=== PATIENT | male | born 1985 | race Caucasian/White ===

== ENCOUNTER 2025-10-07 19:28 | Emergency (ER) | payer BC, SELFPAY ==
[2025-10-07 19:32] VITALS: BMI 31.6
--- NOTE | 2025-10-07 19:34 | XR_ITS ---
Examination: Duplex scan of the lower extremity, unilateral left Date and time of exam: 2024, 2121 hours INDICATIONS: Injury to leg 3 days ago with pain and swelling Technique: Duplex scan of the extremity veins using B-mode/grayscale imaging and Doppler spectral analysis and color flow Attention is directed to internal echogenicity, compression and augmentation involving these veins, color flow assessment, spectral analysis Findings: Major deep venous structures in the extremity demonstrate normal course and caliber. There is no evidence of deep vein thrombosis. Normal color flow and spectral analysis Impression: Negative for DVT..
[2025-10-07 20:53] VITALS: BP 145/88; PULSE 98; RESP 20; TEMP 37.4; O2SAT 98
--- NOTE | 2025-10-07 21:09 | XR_ITS ---
Examination: Tibia-Fibula, left, 2 views Technique: Tibia-fibula AP lateral 2 views Date and time of exam: October 07, 2025, 2151 hours INDICATIONS: Injury to the lower leg today, lower leg pain. FINDINGS: No fracture or dislocation No foreign body IMPRESSION: No fracture or dislocation
--- NOTE | 2025-10-07 21:41 | EDNOTE_ITS ---
ED Extremity Problem RME/HPI General Chief complaint: Extremity Injury, Lower Stated complaint: LEFT LOWER LEG PAIN Time Seen by Provider: 10/07/25 21:05 Arrival date/time: 10/07/25 19:28 40M with no significant PMH presents to ED with several days of LLE pain/swelling/redness after patient was doing deadlifts in the gym. Patient felt something tear in his leg. But then a red painful rash started to appear that radiates up to inner thigh. patient has also had a mild cough and tested negative for strep and clinic yesterday, where PCP sent him here for US to r/o DVT. Patient denies drug use. Limitations: no limitations Related Data Previous Rx's ?Medication ?Instructions ?Recorded Hydrocodone/Acetaminophen * (NORCO 1 tab PO Q4H PRN PA IN #20 tabs 10/27/15 5/325 *) cephalexin 750 mg capsule 750 mg PO TID 7 days #21 cap s 10/07/25 Allergies Allergy/AdvReac Type Severity Reaction Status Date / Time No Known Allergies Allergy Verified 10/07/25 19:29 Review of Systems Review of Systems Systems Reviewed: All systems reviewed, normal except as documented Integumentary/Breasts Skin/Breast: Reports as per HPI, Reports rash, Reports skin pain and Reports skin swelling Past Medical History Social History SMOKING STATUS: Never smoker ED Exam General Limitations: Present no limitations General appearance: Present alert and in no apparent distress Head Head exam: Present atraumatic Neck Neck exam: Present normal inspection, full ROM and trachea midline Chest Chest inspection: Present normal inspection and symmetric chest wall rise Extremities Exam Extremities exam: Present full ROM Expanded Lower Extremity Exam Upper leg exam: Present full ROM (L) and erythema Lower leg exam: Present full ROM (L), tenderness, swelling and erythema Neurological Exam Neurological exam: Present alert and oriented X3 Psychiatric Psychiatric exam: Present normal affect and normal mood Skin Skin exam: Present warm, dry, intact and normal color Course Quality Measures none Orders Category Date Time Status US venous doppler LE LT Stat Exams 10/07/25 19:34 Completed XR tibia fibula LT 2V Stat Exams 10/07/25 21:09 Completed A1C [Glycohemoglobin w (eAG)] Stat Lab 10/07/25 21:38 Completed CBC Stat Lab 10/07/25 21:38 Completed CMP [Comprehensive Metabolic Panel] Stat Lab 10/07/25 21:38 Completed CRP [C-Reactive Protein] Stat Lab 10/07/25 21:38 Completed Creatine Kinase Stat Lab 10/07/25 21:38 Completed ESR [Sed Rate (ESR)] Stat Lab 10/07/25 21:38 Completed INR [Prothrombin Time with INR] Stat Lab 10/07/25 21:38 Completed Lactate (Lactic Acid) Stat Lab 10/07/25 21:38 Completed PTT [Partial Thromboplastin Time] Stat Lab 10/07/25 21:38 Completed Procalcitonin Stat Lab 10/07/25 21:38 Completed cephALEXin [Keflex] Med 10/07/25 23:00 Discontinued 1,000 mg PO X1 ONE Vital Signs Vital signs: Vital Signs Temperature 99.4 F 10/07/25 20:53 Pulse Rate 98 10/07/25 20:53 Respiratory Rate 20 10/07/25 20:53 Blood Pressure 145/88 H 10/07/25 20:53 Pulse Oximetry (%) 98 10/07/25 20:53 Oxygen Delivery Method Room Air 10/07/25 20:53 O2 at 98% on RA and WNLs Extremity Problem MDM Narrative MDM Narrative:: 40M with no significant PMH presents to ED with several days of LLE pain/swelling/redness after patient was doing deadlifts in the gym. Patient felt something tear in his leg. But then a red painful rash started to appear that radiates up to inner thigh. patient has also had a mild cough and tested negative for strep and clinic yesterday, where PCP sent him here for US to r/o DVT. Patient denies drug use. Physical exam reveals redness, swelling, and tenderness of LLE. Rash appears petechiael. Gait and ROM of L ankle normal. There is also some redness in L inner thigh. Normal WOB. Patient is afebrile, calm, and alert. US no DVT. XR unremarkable. No leukocytosis. CMP unremarkable. Procal mildly elevated. Lactate normal. A1C normal. CK normal. ESR/CRP moderately elevated, which could be due to trauma from lifting vs cellulitis. Given extend of rash, will treat. Patient has PCP appt in 2 days and will return if any worsening. Patient data External records reviewed:: None Clinical information provided by:: patient Social determinants that could affect healthcare access:: none Patient has the following chronic illnesses:: none How is presenting disease/condition affected by chronic disease/condition?: no chronic disease Evaluation data The following diagnostics were reviewed and interpreted by me:: lab results and radiology exam(s) Lab and/or radiology exams considered but not ordered:: ordered Interpretation Summary: above Medications / Prescriptions Medications or Prescriptions considered but not ordered:: ordered Medication administrations:: Medication Administration History Discontinued Medications Cephalexin HCl (Cephalexin 250 Mg Capsule) 1,000 mg PO X1 ONE Stop: 10/07/25 23:01 Last Admin: 10/07/25 23:12 Dose: 1,000 mg Documented By: EE above Consultations Consultation(s) initiated? (list below): No Diagnosis Extremity Problem Differential Diagnosis: herpes zoster, gout, cellulitis, superficial thrombophlebitis, deep venous thrombosis of upper extremity, lower extremity edema, deep vein thrombosis of lower extremity and other (nec fasc, rhabdo) Most likely diagnosis given after review of the tests above:: cellulitis Admission Indicated Admission indicated?: not indicated Admission Request Was there a request for admission?: No Disposition Plan Disposition Plan: Discharge Discharge Attestation Discharge Attestation: The patient and all family members were given an opportunity to ask questions and understood the discharge instructions. Discharge instructions specifically effects, indications for sooner follow up or return to the emergency department, and the expected course of current diagnosis. Patient condition: Stable Discharge Plan Plan Patient Disposition: HOME (Self Care) Discharge Disposition comment: Stable Prescriptions/Referrals Prescriptions/Med Rec: New cephalexin 750 mg capsule 750 mg PO TID 7 Days Qty: 21 0RF No Action Hydrocodone/Acetaminophen * (NORCO 5/325 *) 1 TAB tablet 1 tab PO Q4H PRN (Reason: PAIN) Qty: 20 0RF Referrals: No Primary/Family,Physician [Primary Care Provider] - In 1 week Problem List Clinical Impression: Cellulitis Patient/Caregiver Discharge Instructions Education Materials: ED Cellulitis Additional Instructions: Please follow-up with PCP within 24-48 hours and return immediately if symptoms worsen. Print Language: Portuguese Stand Alone Forms: Patient Portal Info Letter PA/COMBER TENDER Supervising Physician DEBBI/MICHAELA Supervising Physician: Dr. Augustin
[2025-10-07 21:50] LABS: Lactate (Lactic Acid) 1.1 mMol/L (0.4-2.0)
[2025-10-07 22:04] LABS: Basophils # (Auto) 0.1 Thou/mm3 (0.0-0.2); Basophils % (Auto) 1 % (0-2.5); Eosinophils # (Auto) 0.0 Thou/mm3 (0.0-0.5); Eosinophils % (Auto) 0 % (0-10); Hematocrit 51.3 % (41.0-53.0); Hemoglobin 17.5 g/dL (13.5-16.0); Immature Granulocytes Auto 0.06 Thou/mm3 (0.00-0.00); Lymphocytes # (Auto) 1.2 Thou/mm3 (1.0-4.8); Lymphocytes % (Auto) 11 % (10-50); Mean Corpuscular HGB Conc 34.1 g/dl (31.0-37.0); Mean Corpuscular Hemoglobin 29.1 pg (25.0-35.0); Mean Corpuscular Volume 85 fL (80-100); Monocytes # (Auto) 0.9 Thou/mm3 (0.0-0.8); Monocytes % (Auto) 9 % (0-12); Neutrophils # (Auto) 8.1 Thou/mm3 (1.8-7.7); Neutrophils % (Auto) 79 % (37-80); Nucleated Red Blood Cell # 0.00 Thou/mm3 (0.00-0.00); Nucleated Red Blood Cell % 0 /100 WBC (0); Platelet Count 136 Thou/mm3 (140-440); RDW Standard Deviation 41.9 fL (35.1-43.9); Red Blood Count 6.01 Miln/mm3 (4.50-5.90); White Blood Count 10.3 Thou/mm3 (3.8-10.6)
[2025-10-07 22:09] LABS: INR 1.1 (0.9-1.3); Partial Thromboplastin Time 22.9 Seconds (22.0-36.0); Prothrombin Time 11.9 Seconds (9.0-12.2)
[2025-10-07 22:22] LABS: Alanine Aminotransferase 30 U/L (10-49); Albumin, Serum 4.6 gm/dL (3.5-5.0); Albumin/Globulin Ratio 1.6 (1.2-2.2); Alkaline Phosphatase 82 U/L (46-116); Anion Gap 9 (7-16); Aspartate Amino Transferase 21 U/L (0-34); BUN/Creatinine Ratio 9 Ratio (12-20); Bilirubin,Total 0.2 mg/dL (0.3-1.2); Blood Urea Nitrogen 12 mg/dL (9-23); Calcium 9.1 mg/dL (8.3-10.6); Calcium (Corrected) 9.1 mg/dL (8.5-10.1); Carbon Dioxide 26.9 mMol/L (20.0-31.0); Chloride 103 mMol/L (98-107); Creatine Kinase 65 U/L (34-171); Creatinine (Component) 1.4 mg/dL (0.6-1.3); Estimated Creatinine Clearance 73.2 mL/min (>60); Globulin 2.8 gm/dL (2.3-3.5); Glucose 109 mg/dL (74-106); Osmolality,Calculated 278 (275-295); Potassium 4.2 mMol/L (3.4-5.1); Procalcitonin 0.53 ng/ml (0.0-0.49); Sodium 139 mMol/L (136-145); Total Protein 7.4 gm/dL (5.7-8.2); eGFR > 60 See Note
[2025-10-07 22:25] LABS: Sed Rate (ESR) 27 mm/hr (0-15)
[2025-10-07 22:27] LABS: C-Reactive Protein 14.6 mg/dL (0.0-0.9)
[2025-10-07 22:38] LABS: Glucose Estimated Average 105 mg/dL (80-131); Hemoglobin A1C 5.3 % Hgb (4.8-6.0)
[2025-10-07 23:07] VITALS: BP 143/78; PULSE 95; RESP 19; TEMP 37.2; O2SAT 97
== END 2025-10-07 23:14 | disposition home or self-care (01) ==
PROVIDERS: Physician Assistant; Emergency Provider Emergency Medicine
DX: L03.116 Cellulitis of left lower limb (principal); R79.89 Other specified abnormal findings of blood chemistry
CPT/HCPCS: 36415; 73590; 80053; 82550; 83036; 83605; 84145; 85025; 85610; 85652; 85730; 86140; 93971; 99283; A9270